=== PATIENT | female | born 1965 | race Caucasian/White ===

== ENCOUNTER 2021-02-14 12:23 | Outpatient (CLI) | payer SELFPAY ==
--- NOTE | 2021-02-14 12:15 | RT.EKG_ITS ---
APPROVED REPORT Exam: Resting ECG Reason for Exam: Chest discomfort Patient Location: O HR:136 bpm ECG Measurements Heart Rate 136 AXIS DE [id number] P [id number] QRSd 96 QRS -6 QT 323 T [id number] QTc 486 Conclusion Atrial fibrillation...V-rate 98-167, irreg A-activity Probable anterior infarct, old...Q >40mS, V2-V5 Nonspecific T abnormalities, lateral leads...T <-0.10mV, I aVL V5 V6
== END 2021-02-14 12:24 | disposition home or self-care (01) ==
LOC: DI.CM 12:24
PROVIDERS: Visit Provider Nurse Practitioner Family
DX: R07.89 Other chest pain (principal)
CPT/HCPCS: 93010

== ENCOUNTER 2021-02-14 13:09 | Observation (INO) | payer SELFPAY ==
[2021-02-14] VITALS (91 sets, daily range): BP systolic 39–110; BP diastolic 25–82; PULSE 69–156; RESP 10–32; TEMP 36.7–37.2; O2SAT 93–100
--- NOTE | 2021-02-14 13:15 | RT.EKG_ITS ---
APPROVED REPORT Exam: Resting ECG Reason for Exam: new onset afib, sob Patient Location: E HR:148 bpm ECG Measurements Heart Rate 148 AXIS HI [id number] P [id number] QRSd 96 QRS -32 QT 317 T [id number] QTc 498 Conclusion Atrial fibrillation...V-rate 125-172, irreg A-activity Left axis deviation...QRS axis (-30,-90) Probable anterior infarct, old...Q >40mS, V2-V5
[2021-02-14] MEDS: dilTIAZem 25 MG/5 ML VIAL 15 MG IVP (14:06)
[2021-02-14 14:07] LABS: Source Nasal/Nares
[2021-02-14 14:08] LABS: Abs Immature Grans 0.01 10^3/uL (0.0-0.06); Absolute Basophil Count 0.03 10^3/uL (0.0-0.2); Absolute Eosinophil Count 0.04 10^3/uL (0.0-0.7); Absolute Lymphocyte Count 1.22 10^3/uL (1.2-3.4); Absolute Monocyte Count 0.34 10^3/uL (0.1-0.8); Absolute Neutrophil Count 5.09 10^3/uL (1.2-6.7); Basophils % 0.4; Eosinophils % 0.6; HCT 38.9 % (36.0-46.0); HGB 12.9 g/dL (11.2-15.7); Immature Grans % 0.1; Lymphocytes % 18.1; MCH 30.9 pg (27.0-33.0); MCHC 33.2 % (32.0-36.0); MCV 93.3 fL (80-95); MPV 10.1 fL (8.0-11.0); Monocytes % 5.1; Neutrophils % 75.7; Nucleated RBC 0 %; Platelet Count 186 10^3/uL (130-400); RBC 4.17 10^6/uL (3.93-5.22); RDW 13.1 % (11.7-14.6); WBC 6.73 10^3/uL (4.4-10.8)
--- NOTE | 2021-02-14 14:31 | ED.GENADUL_ITS ---
Discharge Plan Disposition Patient Disposition: [facility] INPATIENT Condition: Serious Discharge Details Clinical Impression: Atrial fibrillation with rapid ventricular response, Congestive heart failure (CHF) Admit Date/Time: 02/14/21 16:53 Admit Provider: Duane Holt Attending Provider: Duane Holt Primary Care Provider: None,None ED Provider: Audi Emmanuel Discharge Data Discharge Date/Time-TO BE ENTERED AT DEPARTURE: 02/14/21 18:21 Medical Decision Making 55-year-old female here shortness of breath and dyspnea on exertion. Pt with new onset atrial fibrillation with RVR. EKG reviewed and interpreted by me: Please see report, afib Initial labs reviewed including electrolytes and TSH and initial troponin negative. Chest x-ray was interpreted by radiology: FINDINGS: Cardiomegaly. The mediastin um is not widened. Pulmonary venous hypertension pattern. Era B lines. Bordering on interstitial pulmonary edema. No obvious pleural effusions. Will check BNP with concern for CHF given chest x-ray findings, shortness of breath and dyspnea. Diltiazem bolus administered and infusion titrated to control HR. I called and spoke with hospitalist service, nurse practitioner, discussed ED presentation course, she will admit the patient. Labs reviewed and BNP elevated - exam and diagnostics consistent with CHF. HPI General Mode of arrival: ambulatory . Date/Time Provider Initiated Documentation: 02/14/21 13:57 . Limitations to Documentation: no limitations . Information obtained by: patient . HPI Narrative: 55-year-old female here shortness of breath and dyspnea on exertion. Symptoms have been ongoing for the past few weeks. Symptoms worse today. Worse with exertion. Patient went to [facility] and was noted to be in atrial fibrillation. She has no history of A. fib and was sent to the ED for further evaluation. Patient denies associated chest pain. She does note some mild lower extremity edema bilaterally. No calf pain. Related Data Home Medications Medication Instructions Recorded Confirmed Unknown [No Known Home Meds] 02/14/21 Allergies Allergy/AdvReac Type Severity Reaction Status Date / Time No Known Allergies Allergy Verified 02/14/21 11:50 General Stated Complaint: Palpitatns ANITA: 2 Review of Systems All systems reviewed & are unremarkable except as noted in HPI and below Constitutional Constitutional: Denies fever(s) Cardiovascular Cardiovascular: Reports as per HPI Respiratory Respiratory: Reports as per HPI [facility] Active Problem List (Updated 02/15/21 @ 20:35 by Audi Emmanuel MD) Biventricular heart failure (Acute) Congestive heart failure (CHF) (Acute) Atrial fibrillation with rapid ventricular response (Acute) Medical History (Updated 02/15/21 @ 20:35 by Audi Emmanuel MD) Ectopic , tubal (~1996) Social History Smoking/Tobacco Use Status: Former Tobacco Use Smoking risk assessment performed?: Yes Alcohol Intake: never Drug use: Never Substance use type: does not use Do you feel safe at home: Yes Do you feel safe in your relationship?: Yes Exam Const General: cooperative and no acute distress HENMT Mouth: moist mucous membranes Eyes Conjunctivae: normal conjunctivae Sclera: normal sclerae Neck Neck: trachea midline and supple Resp Auscultation: clear to auscultation bilaterally, no rales, no rhonchi and no wheezes Cardio Rate: tachycardic Rhythm: abnormal rhythm irregularly irregular GI Palpation: soft, not firm, no guarding, no masses, not rigid and nontender Skin General skin exam: no rashes or lesions noted Neuro General: patient alert, patient awake, patient oriented x3 and tone normal Extrem General: no calf tenderness and edema Laterality: bilateral (trace) Psych Appearance: grossly normal Mental Status: mental status grossly normal Speech and Movement: speech and movement normal Course Vital Signs Vital signs: Vital Signs Temperature 36.9 C 02/14/21 13:42 Pulse 86 02/14/21 13:42 Respiratory Rate 27 H 02/14/21 13:42 Blood Pressure 102/73 02/14/21 13:42 Pulse Oximetry 100 02/14/21 13:42 Temperature 36.9 C 02/14/21 13:42 Pulse 108 H 02/14/21 14:16 Pulse 112 H 02/14/21 14:16 Respiratory Rate 14 02/14/21 14:16 Respiratory Effort 02/14/21 13:48 Blood Pressure 100/62 02/14/21 14:16 Blood Pressure Mean 69 02/14/21 14:16 Pulse Oximetry 97 02/14/21 14:16 Oxygen Delivery Method Room Air 02/14/21 13:42 Oxygen Flow Rate 0 02/14/21 13:42 Pain Level 0 02/14/21 13:42 Lab/Test Results Lab/Test Results: Laboratory Tests Range/Units 02/14/21 02/14/21 13:55 14:00 WBC (4.4-10.8) 10^3/uL 6.73 RBC (3.93-5.22) 10^6/uL 4.17 Hgb (11.2-15.7) g/dL 12.9 Hct (36.0-46.0) % 38.9 MCV (80-95) fL 93.3 MCH (27.0-33.0) pg 30.9 MCHC (32.0-36.0) % 33.2 RDW (11.7-14.6) % 13.1 Plt Count (130-400) 10^3/uL 186 MPV (8.0-11.0) fL 10.1 Immature Gran % 0.1 Neutrophils % 75.7 Lymphocytes % 18.1 Monocytes % 5.1 Eosinophils % 0.6 Basophils % 0.4 Nucleated RBC % % 0 Absolute Neutrophils (1.2-6.7) 10^3/uL 5.09 Absolute Lymphocytes (1.2-3.4) 10^3/uL 1.22 Absolute Monocytes (0.1-0.8) 10^3/uL 0.34 Absolute Eosinophils (0.0-0.7) 10^3/uL 0.04 Absolute Basophils (0.0-0.2) 10^3/uL 0.03 COVID-19 Source Nasal/Nares Critical Care Time Critical Care Time Critical Care Time: Yes Total Critical Care Time: 50 Attestation: I spent greater than 40 minutes addressing this patient's immediate life threats. Please see MDM section of note. This time was spent engaged in work directly related to the patient's care, exclusive of separate procedures, and failure to initiate these interventions would have likely resulted in clinically significant or life threatening deterioration in the patient's condition.
[2021-02-14 14:34] LABS: ALT 81 U/L (14-59); AST 45 U/L (15-37); Albumin 3.8 g/dL (3.4-5.0); Alkaline Phosphatase 69 U/L (46-116); Anion Gap 11.6 mmol/L (3-11); BUN 21 mg/dL (7-18); Bilirubin, Total 0.8 mg/dL (0.2-1.0); CO2 24.4 mmol/L (21.0-32.0); CREATININE 0.8 mg/dL (0.55-1.02); Calcium 8.6 mg/dL (8.5-10.1); Chloride 108 mmol/L (98-107); Glucose 113 mg/dL (74-106); Magnesium 2.1 mg/dL (1.8-2.4); Sodium 144 mmol/L (136-145); TSH (W/Ref FT4) 2.25 uIU/mL (0.36-3.74); Total Protein 6.5 g/dL (6.4-8.2); Troponin I < 0.05 ng/mL (<0.06)
[2021-02-14] MEDS: dilTIAZem 125 MG in Normal Saline 100 ML IV (15:18)
--- NOTE | 2021-02-14 16:00 | DI.RAD_ITS ---
Exam(s) XR PORTABLE CHEST AP EXAM: XR PORTABLE CHEST AP CLINICAL HISTORY: new onset afib. TECHNIQUE: 2D digital imaging was performed. COMPARISON: No exams were available for comparison FINDINGS: Cardiomegaly. The mediastinum is not widened. Pulmonary venous hypertension pattern. Era B lines. Bordering on interstitial pulmonary edema. No obvious pleural effusions IMPRESSION: Cardiomegaly. Interstitial pulmonary edema. No obvious pleural effusions. DATA REPOSITORY: RADIATION DOSE DELIVERED: All CT scans at this facility use at least one of these dose optimization techniques: automated exposure control; mA and/or kV adjustment per patient size (includes targeted e xams where dose is matched to clinical indication); or iterative reconstruction.
--- NOTE | 2021-02-14 16:26 | DI.VRAD_ITS ---
PROCEDURE INFORMATION: Exam: XR Chest Exam date and time: 02/14/2021 3:24 PM Age: 55 years old Clinical indication: Other: New onset afib TECHNIQUE: Imaging protocol: XR of the chest. Views: 1 view. COMPARISON: No relevant prior studies available. FINDINGS: Lungs: Patchy nodular infiltrate involving both lung newby. Increased reticular markings at the lung bases consistent with atelectasis or developing infiltrate. Pulmonary vascular congestion with mild pulmonary edema. Pleural spaces: Unremarkable. No pleural effusion. No pneumothorax. Heart/Mediastinum: Cardiomegaly. Bones/joints: Unremarkable for patient's age. IMPRESSION: 1. Bilateral infiltrates as discussed above. 2. Cardiomegaly. Pulmonary edema. Dictated and Authenticated by: Sulema German MD. Ordering:KYLER Huntley MD
[2021-02-14 16:28] LABS: COVID-19 PCR Negative (Negative)
[2021-02-14 16:55] LABS: NT-proBNP 7216 pg/mL (<300)
--- NOTE | 2021-02-14 17:01 | HPE_ITS ---
Date of service: 02/14/21 Time of Service: 17:01 Assessment and Plan Assessment and plan (1) Atrial fibrillation with rapid ventricular response: Status: Acute Assessment and plan: This appears to be new onset atrial fibrillation. It sounds like she has had symptomatology for about 2 weeks now. There is an element of congestive heart failure indicating that this has been somewhat longstanding. She has no history of valvular dysfunction or prior coronary artery disease. It does not appear that she is having an acute myocardial infarction. We will trend her troponins. Set her up for echocardiogram in the a.m. Check her lipid panel. Diltiazem infusion to try to maintain a heart rate close to 100 while maintaining systolic blood pressure of greater than 100. Hold on anticoagulation for now. (2) Congestive heart failure (CHF): Status: Chronic Assessment and plan: Mild failure detected by chest x-ray and exam. She is satting 95% on room air and does not appear in respiratory distress. We will hold on diuretic therapy for now. History of Present Illness History of Present Illness Chief Complaint: Rapid atrial fibrillation Narrative: 55-year-old female self-referred to urgent care today because of 2 weeks of increasing shortness of breath. She has been noticing increasing shortness of breath climbing stairs and with other activities. She is also had some peripheral edema she attributed to long hours of standing. 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 She has noticed some wheezing when lying down. She has had some intermittent thoracic back pain. She has not had any upper respiratory tract symptoms. She has no prior cardiac history. She cannot recall any specific inciting event. She was sent to the ED from urgent care for further evaluation. In the emergency room she was found to be in rapid atrial fibrillation at a rate of 150 bpm. She was bolused with diltiazem and started on a diltiazem drip. She is being admitted to the ICU for further rate control and work-up. Review of Systems Narrative: As per HPI. She has had increasing dyspnea on exertion and some evidence of orthopnea. No chest pain. [facility] Active Problem List (Updated 02/14/21 @ 17:17 by Duane Holt MD) Congestive heart failure (CHF) (Chronic) Atrial fibrillation with rapid ventricular response (Acute) Medical History (Updated 02/14/21 @ 17:17 by Duane Holt MD) Ectopic , tubal (~1996) Social History Smoking/Tobacco Use Status: Former Tobacco Use Smoking risk assessment performed?: Yes Alcohol Intake: never Drug use: Never Substance use type: does not use Do you feel safe at home: Yes Do you feel safe in your relationship?: Yes Female Reproductive History Menstrual Menopause type: natural Meds Allergies and Home Medications Allergies Allergy/AdvReac Type Severity Reaction Status Date / Time No Known Allergies Allergy Verified 02/14/21 11:50 Home Medications Medication Instructions Recorded Confirmed Type Unknown [No Known Home Meds] 02/14/21 History Exam Narrative Exam Narrative: On exam she is pleasant and in no apparent distress. She had no labored breathing or cough. Her lung exam notable for some fine crackles at the right base. Some diminished breath sounds at the left base. Upper lung newby sounded clear. Heart rate was rapid and irregular. No significant murmur was appreciated. Her abdomen was overall soft and nontender in all 4 quadrants. No masses were appreciated. Her lower extremities notable for trace edema of the left ankle and no significant edema on the right. Otherwise appear to be well perfused. Neurologically there are no focal deficits. Results Labs Result diagrams: 02/14/21 13:55 02/14/21 13:55 Labs: Laboratory Results - last 24 hr 02/14/21 02/14/21 02/14/21 13:55 13:55 13:55 WBC 6.73 RBC 4.17 Hgb 12.9 Hct 38.9 MCV 93.3 MCH 30.9 MCHC 33.2 RDW 13.1 Plt Count 186 MPV 10.1 Immature Gran % 0.1 Neutrophils % 75.7 Lymphocytes % 18.1 Monocytes % 5.1 Eosinophils % 0.6 Basophils % 0.4 Nucleated RBC % 0 Absolute Neutrophils 5.09 Absolute Lymphocytes 1.22 Absolute Monocytes 0.34 Absolute Eosinophils 0.04 Absolute Basophils 0.03 Sodium 144 Potassium 4.0 Chloride 108 H Carbon Dioxide 24.4 Anion Gap 11.6 H BUN 21 H Creatinine 0.8 Estimated GFR/1.73 m2 >= 60.00 Glucose 113 H Calcium 8.6 Magnesium 2.1 Total Bilirubin 0.8 AST 45 H ALT 81 H Alkaline Phosphatase 69 Troponin I < 0.05 NT-Pro-B Natriuret Pep 7216 H Total Protein 6.5 Albumin 3.8 TSH 2.25 COVID-19 Source SARS-CoV-2 (PCR) 02/14/21 14:00 WBC RBC Hgb Hct MCV MCH MCHC RDW Plt Count MPV Immature Gran % Neutrophils % Lymphocytes % Monocytes % Eosinophils % Basophils % Nucleated RBC % Absolute Neutrophils Absolute Lymphocytes Absolute Monocytes Absolute Eosinophils Absolute Basophils Sodium Potassium Chloride Carbon Dioxide Anion Gap BUN Creatinine Estimated GFR/1.73 m2 Glucose Calcium Magnesium Total Bilirubin AST ALT Alkaline Phosphatase Troponin I NT-Pro-B Natriuret Pep Total Protein Albumin TSH COVID-19 Source Nasal/Nares SARS-CoV-2 (PCR) Negative Last Vital Signs Temp 36.9 C 02/14/21 13:42 Pulse 115 H 02/14/21 16:16 Resp 19 02/14/21 16:20 BP 99/82 L 02/14/21 16:16 Pulse Ox 98 02/14/21 16:20 PAWSS Pt Consumed Any Amount of Alcohol Within the Last 30 days OR had positive PARAS Upon Admission: No
[2021-02-14 17:24] LABS: Troponin I 0.06 ng/mL (<0.06)
[2021-02-14] MEDS: Enoxaparin 40 MG/0.4 ML SYR SC (20:02)
[2021-02-14 21:46] LABS: Troponin I 0.06 ng/mL (<0.06)
[2021-02-15] VITALS (157 sets, daily range): BP systolic 55–99; BP diastolic 40–73; PULSE 77–147; RESP 20–118; TEMP 35.5–36.4; O2SAT 89–97
--- NOTE | 2021-02-15 | DI.CT_ITS ---
Exam(s) CT CHEST PE CTA EXAM: CT CHEST PE CTA CLINICAL HISTORY: New Afib/CHF, shortness of breath, concern for PE. TECHNIQUE: Imaging Protocol: Axial CT angiography was performed with multi-slice acquisition and mu lti-planar and/or 3D reconstructions. CONTRAST MATERIAL: Intravenous: Omnipaque 350 Contrast volume:85 ml COMPARISON: CR,XR XR PORTABLE CHEST AP from 02/14/2021 CR,XR XR PORTABLE CHEST AP from 02/14/2021 FINDINGS: Pulmonary Arteries: No evidence of filling defect to suggest pulmonary emboli. Tracheobronchial tree: Patent where visualized. Mediastinum and Sheryl: No dominant adenopathy or fluid collection. Pulmonary parenchyma: Dependent changes at the lung bases. No consolidation or dominant measurable m ass. Interlobular septal thickening and bilateral ground-glass opacities consistent with CHF.. Pleura: No pneumothorax. Small bilateral pleural effusions, right greater than left. Heart: The heart is markedly dilated. No coronary artery calcifications are seen. Aorta: Thoracic aorta non-dilated. No significant atherosclerotic changes. Upper abdomen: Unremarkable. Bones: Unremarkable for age. IMPRESSION: No evidence of pulmonary embolism. Cardiomegaly and CHF. RADIATION DOSE DELIVERED: 407.83mGy.cm Total DLP DATA REPOSITORY: All CT scans at this facility are submitted to the National Radiology Data Registry (NRDR) Dose Index Registry (DIR) with the [employer] (ACR). RADIATION OPTIMIZATION: All CT scans at this facility use at least one of these dose optimization te chniques: automated exposure control; mA and/or kV adjustment per patient size (includes targeted exa ms where dose is matched to clinical indication); or iterative reconstruction.
[2021-02-15] MEDS: Lactated Ringers 500 ML IV ×2 (00:45→01:15)
[2021-02-15 03:17] LABS: D-Dimer 617 ng/mlFEU (<500)
[2021-02-15] MEDS: Normal Saline - Diluent 50 ML VIAL IV ×2 (05:16→05:17)
[2021-02-15] MEDS: Omnipaque 350 MG/ML 100 ML BTL IJ (05:16)
[2021-02-15] MEDS: Normal Saline Flush 10 ML SYR IVP ×2 (05:17→16:12)
[2021-02-15] MEDS: Acetaminophen 325 MG TAB PO ×2 (05:27→15:50)
--- NOTE | 2021-02-15 05:32 | NUR.NOTE ---
patient went to ct scan via wheelchair. With this activty, front desk monitor heart rate increased to as high as 146. BP to 98/68. Heart rate decreased to under 120 after a few minutes of rest
--- NOTE | 2021-02-15 05:52 | DI.VRAD_ITS ---
PROCEDURE INFORMATION: Exam: CTA Chest With Contrast Exam date and time: 02/15/2021 3:34 AM Age: 55 years old Clinical indication: Other: New afib/chf, shortness of breath, concern for pe TECHNIQUE: Imaging protocol: Computed tomographic angiography of the chest with contrast. 3D rendering (Not supervised by radiologist): MIP and/or 3D reconstructed images were created by the technologist. COMPARISON: XR PORTABLE CHEST AP 02/14/2021 3:49 PM FINDINGS: Pulmonary arteries: No evidence of acute pulmonary embolism. Aorta: Aorta normal caliber without aneurysm, dissection or disruption. Lungs: Septal thickening with diffuse bilateral ground-glass opacities likely pulmonary edema. Moderate bibasilar dependent and subsegmental atelectasis. No obvious pneumonia. Pleural spaces: Bilateral pleural effusions, right greater than left. No pneumothorax. Heart: Cardiac size enlarged. No pericardial effusion. No right heart strain. Lymph nodes: No mediastinal or hilar lymphadenopathy. Bones/joints: Mild degenerative changes noted throughout the spine. No fracture or subluxation. No obviously displaced rib fracture. No sternal fracture. Soft tissues: Unremarkable. IMPRESSION: 1. No evidence of acute pulmonary embolism. 2. Cardiomegaly with suspected CHF with effusions. Bibasilar atelectasis. Findings slightly worsened from prior chest x-ray. Dictated and Authenticated by: Pierce Amaya MD. Ordering:JAVIER Scott MD
[2021-02-15 07:14] LABS: Abs Immature Grans 0.01 10^3/uL (0.0-0.06); Absolute Basophil Count 0.03 10^3/uL (0.0-0.2); Absolute Eosinophil Count 0.04 10^3/uL (0.0-0.7); Absolute Lymphocyte Count 1.18 10^3/uL (1.2-3.4); Absolute Monocyte Count 0.23 10^3/uL (0.1-0.8); Absolute Neutrophil Count 3.36 10^3/uL (1.2-6.7); Basophils % 0.6; Eosinophils % 0.8; HGB 11.4 g/dL (11.2-15.7); Immature Grans % 0.2; Lymphocytes % 24.3; MCH 31.1 pg (27.0-33.0); MCHC 32.6 % (32.0-36.0); MCV 95.6 fL (80-95); MPV 9.9 fL (8.0-11.0); Monocytes % 4.7; Neutrophils % 69.4; Nucleated RBC 0 %; Platelet Count 161 10^3/uL (130-400); RBC 3.66 10^6/uL (3.93-5.22); RDW 12.9 % (11.7-14.6); RDW-SD 45.2 fL; WBC 4.85 10^3/uL (4.4-10.8)
--- NOTE | 2021-02-15 07:32 | DI.US_ITS ---
APPROVED REPORT EXAM: Comprehensive 2D, Doppler, and color-flow Echocardiogram Patient Location: In-Patient Room/Bed: [id number] Corporate Technical Recruiter: Susannah Chavez RDCS (AE) Indications: New onset Afib, CHF, SOB Other Information Study Quality: Adequate Conclusion Moderately dilated left ventricle. Normal left ventricular wall thickness. Estimated ejection fract ion is 15 to 20% with severe global hypokinesis Borderline dilated right ventricle, which is hypocontractile Both atria are dilated Trileaflet aortic valve without stenosis or regurgitation Mildly thickened mitral leaflets. Moderate to severe mitral regurgitation Normal tricuspid valve with moderate regurgitation. Estimated right ventricular systolic pressure is 33 mmHg Normal pulmonic valve with mild regurgitation Wall motion Left Ventricle Left ventricle is moderately dilated.6.85 cm Left ventricular systolic function is severely decreased . There is normal left ventricular wall thickness. Regional wall motion abnormalities cannot be exclu ded. There is no ventricular septal defect visualized. LVEF is 15-20%. Right Ventricle Right ventricle is borderline dilated. Right ventricle is hypokinetic. The RVSP is 33.1mmHg. Atria Left atrium is severely dilated. Right atrium is severely dilated. The interatrial septum is intact w ith no evidence for an atrial septal defect. Aortic Valve The aortic valve is normal in structure. Aortic valve is trileaflet. There is no aortic valvular sten osis. No aortic regurgitation is present. Mitral Valve Mitral valve leaflets are mildly thickened. No evidence of mitral valve stenosis. Moderate to severe mitral regurgitation. Tricuspid Valve The tricuspid valve is normal in structure. There is no tricuspid valve stenosis. Moderate tricuspid regurgitation. Pulmonic Valve The pulmonary valve is normal in structure. There is no pulmonic valvular stenosis. Mild pulmonic reg urgitation. Great Vessels The aortic root is normal in size. The ascending aorta is normal in size. Aortic arch is normal in ca liber. The IVC collapses <50% with inspiration. Pericardium There is no pericardial effusion. 2D Dimensions IVSD d PLAX 0.79 cm F: 0.6-1.0 LV Vol A2C d MOD 206.2 mL LVPW d PLAX 0.77 cm F: 0.6 - 1.0 LV Vol A4C d MOD 193.3 mL LVID d PLAX 6.85 cm F: 3.8 - 5.2 LA Area A4C s MOD 32.80 cm2 LVDs 6.50 cm F: 2.2 - 3.5 LA Area A2C s MOD 30.05 cm2 Ao Root d 3.37 cm F: 2.7 - 3.3 LV EF A4C MOD 12.6 % Ao Asc Diam d 3.17 cm F: 2.3 - 3.1 LV EF A2C MOD 12.1 % LV EF Teichholz 11.1 % LV EF Biplane MOD 10.4 % LVEF (Pierce's) 10.44 % F: 54 - 74 SV 20.96 mL LV Volume 200.71 mL F: 46 - 106 LV Volume Index 101.88 mL/m2 F: 29 - 61 LV Vol Biplane MOD 200.7 mL FS 5.00 % M-Mode TAPSE 1.54 cm (M/F) >1.7 LV Diastology MV E' medial 0.091 (>0.07 m/s) MV E Vmax 0.94 (0.4-1.3 m/s) LV E/e MED 10.30 (<14) MV E' lateral 0.124 (>0.1 m/s) LV E/e LAT 7.55 (<14) MV E/E' medial 10.31 MV E/E' lateral 7.60 Aortic Valve LVOT Area 2.94 cm2 AoV Area Vmax 2.32 cm2 LVOT Vmax 0.62 m/s SCOTT Mean Alex. 2.30 cm2 LVOT Mean Alex. 0.49 m/s LVOT Peak Grad 1.5 mmHg LVOT Mean Grad 1.0 mmHg LVOT VTI 0.092 m LVOT Diam s 1.90 cm AoV Vmax 0.78 m/s Velocity Ratio 0.79 AoV Mean Alex. 0.63 m/s AoV Peak Grad 2.4 mmHg LVOT SV 27.12 mL AoV Mean Grad 1.7 mmHg AoV VTI 0.126 m AoV Area VTI 2.16 cm2 Mitral Valve MV DT 138 (160-240 msec) MR Vmax 4.35 m/s MV PHT 40 msec MR VTI 1.119 m MV Area PHT 5.52 cm2 MR Peak Grad 75.7 mmHg MV VTI 0.206 m MR Mean Grad 51.5 mmHg MV VTI Annulus 0.215 m MR PISA Radius 0.73 cm MV Area VTI 1.37 (4.0-6.0 cm2) MR EROA 0.27 cm2 MR Aliasing Velocity 0.35 m/s MR PISA 3.38 cm2 Pulmonary Valve PV Vmax 0.59 (0.5-1.5 m/s) RVOT Peak Gr. 0.55 mmHg PV Peak Grad 1.4 mmHg RVOT Mean Gr. 0.30 mmHg PV Mean Grad 0.8 mmHg RVOT VTI 0.059 m PV VTI 0.095 m RVOT Vmax 0.37 m/s Tricuspid Valve TR Peak Grad 25.1 mmHg TR Vmax 2.51 m/s RA Pressure 8.00 mmHg RVSP (TR) 33.1 mmHg
[2021-02-15 07:39] LABS: Anion Gap 10.6 mmol/L (3-11); BUN 19 mg/dL (7-18); CO2 23.4 mmol/L (21.0-32.0); CREATININE 0.9 mg/dL (0.55-1.02); Calcium 8.2 mg/dL (8.5-10.1); Calculated LDL 98 mg/dL (<100); Chloride 108 mmol/L (98-107); Cholesterol 152 mg/dL (<200); Glucose 137 mg/dL (74-106); HDL Cholesterol 42 mg/dL (40-60); Sodium 142 mmol/L (136-145); Triglyceride 64 mg/dL (<150)
--- NOTE | 2021-02-15 07:56 | PUCC_ITS ---
General Date of Service Date of service: 02/15/21 Time of Service: 07:00 Reason for Admission to ICU: Atrial fibrillation with RVR Volume overload Assessment and Plan Assessment and plan (1) Biventricular heart failure: Status: Acute (2) Atrial fibrillation with rapid ventricular response: Status: Acute Assessment and plan: This is a 55 yo female who was otherwise healthy and who presents to be found in A.fib with RVR. Clinically to me she appeared to be in CHF, despite no known diagnosis of this. Later echocardiogram confirmed my suspicions finding biventricular heart failure with an EF of 15%. Her A.fib with RVR is likely a result of atrial stretch. Her PAP is not elevated on echo. She does not have a clear cause for her heart failure. She is a non-drinker and has no known autoimmune disease. Although ischemic cardiomyopathy seems less likely given her age and otherwise good health, she will most certainly need a cardiac cath to definitively rule this out. She has a thorough workup pending for other more rare causes of cardiomyopathy. I did not delve into whether or not she has had any recent life stressors that could prompt a Takatsubo's picture (although without the classic echo finding). She will benefit from rate control to below 110bpm. She should also be started on ASA, but would hold on the ARB while she is hypotensive. If her blood pressure is too soft with the amount of metoprolol needed for rate control I would recommend switching to amiodarone (acutely) as well as dobutamine, although currently she is not in cardiogenic shock, rather has lower BP given low stroke volume in addition to receiving significant BP lowering meds. She should be transfered to a CCU for a more thorough work up of her cardiomyopathy and possible consideration of an AICD given her biventricular failure and low EF. 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 - recommend holding ARB - avoid CCB's - avoid any agents that increase afterload - recommend trial dobutamine if development of cardiogenic shock, if she does not tolerate this then recommend levophed Atrial Fibrillation - recommend metoprolol for rate control. - again if she cannot tolerate this recommend amiodarone bolus and drip (acutely with plans to change) - no current indication for anti-coagulation - redusing her rate should improve her hemodynamics Renal: Close UOP monitoring Please chack electrolytes while diuresing - particularly given CHF I&O: Intake & Output 02/12/21 02/13/21 02/14/21 02/15/21 23:59 23:59 23:59 23:59 Intake Total 320.25 / 320.25 8.75 / 8.75 Output Total 350 / 475 250 / 250 Balance -29.75 / -154.75 -241.25 / -241.25 Weight 81.9 kg 86.7 kg Daily Fluid Goal:: -2L in 24 hours, try not to diurese too quickly GI Nutrition: OK for diet Date of Last Bowel Movement: 02/14/21 Infectious Disease: No acute concerns, ID workup pending for cardiomyopathy Hematologic: No acute concerns Neurologic: No acute concerns Endocrine: No acute concerns Lines: PIV Prophylaxis: recommend d/c heparin gtt and starting Lovenox for DVT ppx dosing. No indication for GI ppx Code Status: Resuscitation Status Full Code Subjective Critical and life-threatening events over the past 24 hours: This is a 55 yo female, who is otherwise medically healthy who presents with palpitations and shortness of breath. She was found to be in A.fib and started on a diltiazem drip. This helped with her heart rate but she became hypotensive due to the diltiazem. This was then stopped an dher heart rate increased again to 150. Her chest CT shows very significant volume overload with GGO and septal thickening. Additionally her heart is very enlarged. She tells me she has no history of DM, HTN or heart issues. There is no family history of heart disease. She denies drug use or excessive alcohol intake. She has SOB and weakness and endorses palpitations.She notes that her legs have been larger than normal recently. Exam Const General: no acute distress Nutritional Appearance: well nourished [facility] Head: normocephalic Ears: external ears normal and no periauricular adenopathy General nose exam: nasal mucous membranes and turbinates normal Face and sinus: sinuses nontender Mouth: oropharynx normal and moist mucous membranes Teeth and gingiva: dentition normal Eyes General: appearance normal, both eyes and all related structures Pupils: PERRL Neck Neck: normal visual inspection, no lymphadenopathy and JVD Chest Chest: normal inspection of the chest Resp Effort & Inspection: normal respiratory effort Auscultation: rales bilaterally 2/[address] up, no rhonchi and no wheezes Cardio Rate: regular rate Rhythm: regular rhythm Heart Sounds: S1 normal, S2 normal and no murmurs Pulses: radial pulses present bilaterally GI Inspection: normal to inspection Palpation: soft Skin General skin exam: no rashes or lesions noted Neuro General: patient alert, patient awake and patient oriented x3 Extrem General: no clubbing, no cyanosis and edema Laterality: bilateral (2/[address] olivera, 2-3+) Psych Mental Status: mental status grossly normal Affect: normal affect Attitude: cooperative Most Recent VS/Results Last Vital Signs Temp 36.1 C L 02/15/21 00:20 Pulse 133 H 02/15/21 06:01 Resp 11 L 02/14/21 23:40 BP 87/55 L 02/15/21 06:01 Pulse Ox 96 02/15/21 06:50 Laboratory Results - last 24 hr 02/14/21 02/14/21 02/14/21 13:55 13:55 13:55 WBC 6.73 RBC 4.17 Hgb 12.9 Hct 38.9 MCV 93.3 MCH 30.9 MCHC 33.2 RDW 13.1 Plt Count 186 MPV 10.1 Immature Gran % 0.1 Neutrophils % 75.7 Lymphocytes % 18.1 Monocytes % 5.1 Eosinophils % 0.6 Basophils % 0.4 Nucleated RBC % 0 Absolute Neutrophils 5.09 Absolute Lymphocytes 1.22 Absolute Monocytes 0.34 Absolute Eosinophils 0.04 Absolute Basophils 0.03 D-Dimer Sodium 144 Potassium 4.0 Chloride 108 H Carbon Dioxide 24.4 Anion Gap 11.6 H BUN 21 H Creatinine 0.8 Estimated GFR/1.73 m2 >= 60.00 Glucose 113 H Calcium 8.6 Magnesium 2.1 Total Bilirubin 0.8 AST 45 H ALT 81 H Alkaline Phosphatase 69 Troponin I < 0.05 NT-Pro-B Natriuret Pep 7216 H Total Protein 6.5 Albumin 3.8 Triglycerides Total Cholesterol LDL Cholesterol, Calc HDL Cholesterol TSH 2.25 COVID-19 Source SARS-CoV-2 (PCR) 02/14/21 02/14/21 02/14/21 14:00 16:55 21:15 WBC RBC Hgb Hct MCV MCH MCHC RDW Plt Count MPV Immature Gran % Neutrophils % Lymphocytes % Monocytes % Eosinophils % Basophils % Nucleated RBC % Absolute Neutrophils Absolute Lymphocytes Absolute Monocytes Absolute Eosinophils Absolute Basophils D-Dimer Sodium Potassium Chloride Carbon Dioxide Anion Gap BUN Creatinine Estimated GFR/1.73 m2 Glucose Calcium Magnesium Total Bilirubin AST ALT Alkaline Phosphatase Troponin I 0.06 0.06 NT-Pro-B Natriuret Pep Total Protein Albumin Triglycerides Total Cholesterol LDL Cholesterol, Calc HDL Cholesterol TSH COVID-19 Source Nasal/Nares SARS-CoV-2 (PCR) Negative 02/15/21 02/15/21 02/15/21 02:23 06:13 06:13 WBC 4.85 RBC 3.66 L Hgb 11.4 Hct 35.0 L MCV 95.6 H MCH 31.1 MCHC 32.6 RDW 12.9 Plt Count 161 MPV 9.9 Immature Gran % 0.2 Neutrophils % 69.4 Lymphocytes % 24.3 Monocytes % 4.7 Eosinophils % 0.8 Basophils % 0.6 Nucleated RBC % 0 Absolute Neutrophils 3.36 Absolute Lymphocytes 1.18 L Absolute Monocytes 0.23 Absolute Eosinophils 0.04 Absolute Basophils 0.03 D-Dimer 617 H Sodium 142 Potassium 4.0 Chloride 108 H Carbon Dioxide 23.4 Anion Gap 10.6 BUN 19 H Creatinine 0.9 Estimated GFR/1.73 m2 >= 60.00 Glucose 137 H Calcium 8.2 L Magnesium Total Bilirubin AST ALT Alkaline Phosphatase Troponin I NT-Pro-B Natriuret Pep Total Protein Albumin Triglycerides 64 Total Cholesterol 152 LDL Cholesterol, Calc 98 HDL Cholesterol 42 TSH COVID-19 Source SARS-CoV-2 (PCR) Review of Systems All systems reviewed & are unremarkable except as noted in HPI and below Time spent with patient Time spent in Critical Care: 45 Time spent in Critical care included: Coordination of care, Chart review, Documenting critically ill care, Time at immediate bedside and Discussing critically ill care with other medical staff
[2021-02-15] MEDS: Furosemide 40 MG/4 ML VIAL IVP ×2 (09:11→16:07)
--- NOTE | 2021-02-15 10:05 | PDOC.CMIN ---
- If Service Date Differs Date of service: 02/15/21 Time of Service: 10:05 Care Management Initial Assess REASON FOR HOSPITALIZATION:: Rapid Afib PAST MEDICAL HISTORY/PAST SURGICAL HISTORY:: Congestive heart failure (CHF) (Chronic). Atrial fibrillation with rapid ventricular response (Acute). Ectopic , tubal (~1996) PREVIOUS FUNCTIONAL STATUS/SOCIAL/FAMILY SUPPORTS:: Resides in [place], with her spouse and is independent at baseline in the community. 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 ADVANCE DIRECTIVES:: None on file. Has patient been provided with info about the portal/API?: No Did the patient sign up for the portal?: No CODE STATUS:: Full Code POTENTIAL DISCHARGE NEEDS:: Possible transfer per MD. PATIENT/FAMILY EDUCATION NEEDS:: Review discharge instructions, discuss Ask Me Three. ANTICIPATED BARRIERS TO DISCHARGE:: Bed availability if transfer is needed. TRANSPORTATION:: EMS with transfer, private vehicle with family if discharging home. PLAN:: Per MD, possible transfer anticipated. EMS transport to tertiary if needed. CM continues to follow.
[2021-02-15] MEDS: Metoprolol 50 MG TAB PO ×2 (10:18→16:07)
--- NOTE | 2021-02-15 10:28 | PGE_ITS ---
Date of Service Date of service: 02/15/21 Time of Service: 10:28 Assessment and Plan Assessment and plan (1) Congestive heart failure (CHF): Status: Acute Assessment and plan: Differential diagnosis include ischemic cardiomyopathy, viral myocarditis, sarcoidosis, amyloidosis, doubt alcohol related and she does not drink alcohol. Patient needs referral to a tertiary care center that manages complex cardiomyopathies. She is going to need a cardiac catheterization to rule out ischemic heart disease as well as obtaining cardiac biopsy looking for infiltrative process. I have reached out to [facility] at present time they are not accepting any patients but they will get a horse identifier to discuss her case with me and make recommendations. Patient had a good response to Lasix 40 mg IV push. At this time I put on scheduled dose of Lasix 40 mg IV BID, will work on getting better rate control of her atrial fibrillation by increasing her metoprolol to 50 mg 4 times daily. If were not able to control her rate with metoprolol consider addition of digoxin. I discussed with her going on anticoagulation I think is a good idea given her cardiomyopathy and her heart failure. Her [id number] score is 2 which gives her high risk for thromboembolic disease. Her yearly risk of stroke is 2.2%. I discussed this with her and I recommend that she go on a D.O.A.C. Qualifiers: Heart failure type: systolic Heart failure chronicity: acute Qualified Code(s): I50.21 - Acute systolic (congestive) heart failure (2) Atrial fibrillation with rapid ventricular response: Status: Acute Assessment and plan: Titration of her oral beta-mali and use as needed IV Lopressor for rapid sustained rates of 130 or greater. Begin anticoagulation with apixaban. If unable to adequately get her rate under control with beta- blockers alone then start digoxin Subjective Subjective Interval history since last seen: 55-year-old former smoker who uses chewing tobacco but does not drink any alcohol presented 2-week history of exertional dyspnea and bilateral leg edema. Chest x-ray was consistent with pulmonary edema and cardiomegaly. Chest CTA ruled out any pulmonary embolism or any aortic aneurysm. No pneumonic consolidation. Serial troponins were flat at 0.06 and repeat of 0.06. TSH is normal at 2.25 proBNP was 7200. Patient was on a diltiazem drip last night which has been discontinued and she was been started on metoprolol and was given a 50 mg dose this morning which she tolerated. She was also given Lasix 40 mg IV push this morning and has diuresed 1200 mL. BUN and creatinine are normal this morning at 19 and 0.9. Patient is feeling better. Blood pressures been soft throughout the night with systolic pressures in the 80s to 90s but for a short time she did dip down into the 70s. She was given a fluid bolus last night by the independent video producer. This morning she received the Lasix and diuresed. She is not requiring any supplemental oxygen at this time O2 sats 96%. She denies any chest pain or pressure. I explained to the patient that she has a cardiomyopathy her echocardiogram demonstrated 15 to 20% ejection fraction with severe global hypokinesis she has borderline dilated right ventricle which is hypocontractile she has biatrial enlargement there is no aortic stenosis or aortic insufficiency but she does have moderate to severe mitral regurgitation and moderate to severe tricuspid regurgitation with an RVSP of 33 mm. I explained to the patient that while we can try medical management with diuretics and beta-blockers bring her heart rate under control and to diurese her out of heart failure and will be adding an ARB to her regimen she is going to need to see a horse identifier and have a cardiac catheterization to rule out ischemic cause for heart disease as well as possibly obtain cardiac biopsy looking for any infiltrative process I put a call out to [facility] to the transfer center. At this time they are not receiving any transfers but they will get a horse identifier on the phone to discuss her case with me. Objective Last Vital Signs Temp 36.0 C L 02/15/21 10:04 Pulse 120 H 02/15/21 10:04 Resp 20 02/15/21 10:04 BP 95/73 L 02/15/21 10:04 Pulse Ox 96 02/15/21 10:04 Laboratory Results - last 24 hr 02/14/21 02/14/21 02/14/21 13:55 13:55 13:55 WBC 6.73 RBC 4.17 Hgb 12.9 Hct 38.9 MCV 93.3 MCH 30.9 MCHC 33.2 RDW 13.1 Plt Count 186 MPV 10.1 Immature Gran % 0.1 Neutrophils % 75.7 Lymphocytes % 18.1 Monocytes % 5.1 Eosinophils % 0.6 Basophils % 0.4 Nucleated RBC % 0 Absolute Neutrophils 5.09 Absolute Lymphocytes 1.22 Absolute Monocytes 0.34 Absolute Eosinophils 0.04 Absolute Basophils 0.03 D-Dimer Sodium 144 Potassium 4.0 Chloride 108 H Carbon Dioxide 24.4 Anion Gap 11.6 H BUN 21 H Creatinine 0.8 Estimated GFR/1.73 m2 >= 60.00 Glucose 113 H Calcium 8.6 Magnesium 2.1 Total Bilirubin 0.8 AST 45 H ALT 81 H Alkaline Phosphatase 69 Troponin I < 0.05 NT-Pro-B Natriuret Pep 7216 H Total Protein 6.5 Albumin 3.8 Triglycerides Total Cholesterol LDL Cholesterol, Calc HDL Cholesterol TSH 2.25 COVID-19 Source SARS-CoV-2 (PCR) 02/14/21 02/14/21 02/14/21 14:00 16:55 21:15 WBC RBC Hgb Hct MCV MCH MCHC RDW Plt Count MPV Immature Gran % Neutrophils % Lymphocytes % Monocytes % Eosinophils % Basophils % Nucleated RBC % Absolute Neutrophils Absolute Lymphocytes Absolute Monocytes Absolute Eosinophils Absolute Basophils D-Dimer Sodium Potassium Chloride Carbon Dioxide Anion Gap BUN Creatinine Estimated GFR/1.73 m2 Glucose Calcium Magnesium Total Bilirubin AST ALT Alkaline Phosphatase Troponin I 0.06 0.06 NT-Pro-B Natriuret Pep Total Protein Albumin Triglycerides Total Cholesterol LDL Cholesterol, Calc HDL Cholesterol TSH COVID-19 Source Nasal/Nares SARS-CoV-2 (PCR) Negative 02/15/21 02/15/21 02/15/21 02:23 06:13 06:13 WBC 4.85 RBC 3.66 L Hgb 11.4 Hct 35.0 L MCV 95.6 H MCH 31.1 MCHC 32.6 RDW 12.9 Plt Count 161 MPV 9.9 Immature Gran % 0.2 Neutrophils % 69.4 Lymphocytes % 24.3 Monocytes % 4.7 Eosinophils % 0.8 Basophils % 0.6 Nucleated RBC % 0 Absolute Neutrophils 3.36 Absolute Lymphocytes 1.18 L Absolute Monocytes 0.23 Absolute Eosinophils 0.04 Absolute Basophils 0.03 D-Dimer 617 H Sodium 142 Potassium 4.0 Chloride 108 H Carbon Dioxide 23.4 Anion Gap 10.6 BUN 19 H Creatinine 0.9 Estimated GFR/1.73 m2 >= 60.00 Glucose 137 H Calcium 8.2 L Magnesium Total Bilirubin AST ALT Alkaline Phosphatase Troponin I NT-Pro-B Natriuret Pep Total Protein Albumin Triglycerides 64 Total Cholesterol 152 LDL Cholesterol, Calc 98 HDL Cholesterol 42 TSH COVID-19 Source SARS-CoV-2 (PCR) PAWSS Pt Consumed Any Amount of Alcohol Within the Last 30 days OR had positive PARAS Upon Admission: No
--- NOTE | 2021-02-15 12:08 | NUR.NOTE ---
Lab draws APTT and other labs.Nursing Note:
--- NOTE | 2021-02-15 12:09 | PHA.REVIEW ---
Pharmacy Admission Review - Admission Clinical Review (Last Updated 02/14/21 @ 17:14 by Duane Holt MD) Congestive heart failure (CHF) (Acute) Atrial fibrillation with rapid ventricular response (Acute) No Known Allergies Allergy (Verified 02/14/21 11:50) Resuscitation Status Full Code Height 5 ft 9 in Weight 86.7 kg - Renal Dosing Renal Dosing: BUN 19 mg/dL (7-18) H 02/15/21 06:13 Creatinine 0.9 mg/dL (0.55-1.02) 02/15/21 06:13 Medications needing adjustments: Reviewed (Crcl ~72 mL/min current meds okay.) - Anticoagulation Anticoagulation: Hgb 11.4 g/dL (11.2-15.7) 02/15/21 06:13 Hct 35.0 % (36.0-46.0) L 02/15/21 06:13 Plt Count 161 10^3/uL (130-400) 02/15/21 06:13 Creatinine 0.9 mg/dL (0.55-1.02) 02/15/21 06:13 DVT Prophylaxis: N/A Therapeutic Anticoagulation: Reviewed Medications: Heparin - Opiate Usage Evaluate Pain Scale/Pains Meds: N/A - Relevant Labs Sodium 142 mmol/L (136-145) 02/15/21 06:13 Potassium 4.0 mmol/L (3.5-5.1) 02/15/21 06:13 Chloride 108 mmol/L (98-107) H 02/15/21 06:13 Magnesium 2.1 mg/dL (1.8-2.4) 02/14/21 13:55 Electrolytes, C-Reactive P, ESR: Reviewed - DM Control DM Control: Glucose 137 mg/dL (74-106) H 02/15/21 06:13 Insulin Dosing: N/A (Minimally elevated so far this admission. No DM noted in medical history, no A1c on file.) - Heart Failure/UT Heart Failure/UT: Troponin I 0.06 ng/mL (<0.06) 02/14/21 21:15 NT-Pro-B Natriuret Pep 7216 pg/mL (<300) H 02/14/21 13:55 EF%, KATY's, B-Blockers, Diuretics: Reviewed - BP Control BP Control: Blood Pressure [Right Arm] 89/55 Blood Pressure 95/73 Blood Pressure 89/55 Blood Pressure 87/55 Blood Pressure 98/68 If elevated: Reviewed (HR 120. BP has been low since admission. There are hold parameters on current BP meds that are ordered.) - Qtc Review If Elevated: Reviewed (QTc 498 on admission, current meds okay.) - IV to PO Switch IV Medications: Reviewed - Home Meds Home Med List reviewed: Reviewed (unknown/no known home meds) - Current meds Current Medication Order Review: Intervened (Discontinued DI meds, already given.) - Comments Comments/Follow Ups: Watch HR, BP, labs, and for med changes (avoid QT prolonging meds).
[2021-02-15 12:39] LABS: INR 1.1 (0.9-1.1); PTT Activated 23.9 sec (21.0-27.5); Prothrombin Time 11.2 sec (9.3-11.0)
--- NOTE | 2021-02-15 17:08 | NUR.NOTE ---
24 hour urine collection begins at 17:00 02-15-2021. Urine bottle is in room on ice. Second bottle is at nurses' station with collection instructions.Nursing Note:
--- NOTE | 2021-02-15 18:29 | NUR.NOTE ---
Patient placed in a slight trendelenberg position to assist keeping patient's BP elevated. Patient runs low and just received 50mg of Metoprolol and 40 mg of Furosemide.Nursing Note:
[2021-02-15 20:26] LABS: PTT Activated 36.8 sec (21.0-27.5)
[2021-02-15 20:27] LABS: Anion Gap 7.4 mmol/L (3-11); CO2 29.6 mmol/L (21.0-32.0); Chloride 106 mmol/L (98-107); Potassium 3.5 mmol/L (3.5-5.1); Sodium 143 mmol/L (136-145)
--- NOTE | 2021-02-15 23:40 | W.PM.DS.N ---
Date of service: 02/16/21 Time of Service: 00:39 DS: Diagnosis Discharge Diagnosis (1) Biventricular heart failure: Status: Acute (2) Atrial fibrillation with rapid ventricular response: Status: Acute (3) Congestive heart failure (CHF): Status: Acute (4) Elevated liver transaminase level: Status: Acute Discharge Plan Disposition Patient Disposition: [facility] Condition: Serious Discharge Details Reason For Visit: Rapid Afib Admit Date/Time: 02/14/21 16:53 Admit Provider: Duane Holt Attending Provider: Duane Holt Primary Care Provider: None,None Hospital Course Hospital Course: 55 yo F with no known significant PMH presented initially to urgent care with 2 days of increasing shortness of breath and peripheral edema. No chest pain or recent illness. She was found to be in atrial fibrillation with rate of 150bpm. Troponins 0.06 and 0.06. proBNP 7200. Negative CTA. She initially received diltiazem bolus and drip, but this was changed to metoprolol after echocardiogram revealed LVEF of 15-20% with severe global hypokenesis. She was started on heparin. Her [id number] was calcualated at 2. She responded to 40mg furosemide with good diuresis and 40mg IV BID was ordered. She was started on valsartan 20mg BID along with 50mg q 6 hr of metoprolol tatrate. Labs otherwise notable for AST of 45 and ALT of 81. No significant alcohol reported. KATY levels, ARVIND, serum electrophoresis, HIV, and 24hr urine for monoclonal proteins pending on discharge (urine packaged and sent with patient on ice) Transfer arranged to [facility] cardiology for catheterization and possible further diagnostic assessment including possible cardiac biopsy. Home Meds and New Rx's Prescriptions: No Action No Known Home Meds RF: 0 Discharge Instructions Instructions: Heart Failure (GEN) Activity:: ambulate on monitor Equipment/Supplies:: cardiac monitoring Diet:: Low Sodium Discharge Orders Discharge Orders: Discharge Order (Routine); Ordered 02/15/21 Ordered By: Timoteo Gutierrez DS: Summary Time Spent with Patient providing and/or coordinating discharge services: Less than 30 minutes Status at Discharge Functional status at discharge: independent ambulation Overall status at discharge: patient is not back to baseline Mental Status: mental status grossly normal Speech and Movement: speech and movement normal Mood: congruent mood Affect: normal affect Exam Const General: cooperative and no acute distress Nutritional Appearance: average body habitus Orientation: alert and oriented x3 Resp Effort & Inspection: able to speak in complete sentences Auscultation: crackles (1/3 up posterior lung newby bilaterally) Cardio Rate: regular rate Rhythm: abnormal rhythm irregularly irregular Heart Sounds: S1 normal, S2 normal, no gallops, no murmurs and no rubs Extrem General: normal to inspection, no cyanosis and edema (trace bilaterally) Psych Mental Status: mental status grossly normal Speech and Movement: speech and movement normal Mood: congruent mood Affect: normal affect DS: Data Vitals/I&O Vitals and I&O: Vital Signs Temperature 36.1 C L 02/15/21 19:30 Temperature Source Temporal Artery Scan 02/15/21 19:30 Pulse 91 H 02/15/21 20:24 Pulse 96 H 02/15/21 20:24 Respiratory Rate 20 02/15/21 19:30 Respiratory Effort 02/15/21 19:30 Respiratory Depth Normal 02/15/21 19:30 Respiratory Pattern Normal 02/15/21 19:30 Blood Pressure 83/53 L 02/15/21 20:24 Blood Pressure Mean 60 02/15/21 20:24 Blood Pressure Position Supine 02/15/21 19:30 Pulse Oximetry 95 02/15/21 20:24 Oxygen Delivery Method Room Air 02/15/21 19:30 Oxygen Flow Rate 0 02/15/21 19:30 Pain Level 0 02/15/21 19:30 Intake & Output 02/14/21 02/15/21 02/15/21 23:59 11:59 23:59 Intake Total 320.25 / 320.25 248.75 / 2304.583 2055.833 / 2304.583 Output Total 350 / 475 1500 / 3750 2250 / 3750 Balance -29.75 / -154.75 -1251.25 / -1445.417 -194.167 / -1445.417 Weight 81.9 kg 86.7 kg 84.9 kg Intake: IV 80.25 / 80.25 8.75 / 6871.314 3371.833 / 1104.583 Oral 240 / 240 240 / 1200 960 / 1200 Output: Urine 350 / 475 1500 / 3750 2250 / 3750 Other: Urine Color Pale Yellow Yellow Yellow Urine Appearance Clear Clear Clear Urine Odor None None None Comment Voiding independently in urinal. Stool Occult Blood Negative Stool Size Moderate Stool Characteristics Soft Voiding Methods Bedside Commode Bedside Commode Bedside Commode Data Completed and Pending Labs on day of discharge: Labs from last 24 hours 02/15/21 02/15/21 02/15/21 19:35 19:35 16:56 WBC RBC Hgb Hct MCV MCH MCHC RDW Plt Count MPV Immature Gran % Neutrophils % Lymphocytes % Monocytes % Eosinophils % Basophils % Nucleated RBC % Absolute Neutrophils Absolute Lymphocytes Absolute Monocytes Absolute Eosinophils Absolute Basophils PT INR APTT 36.8 H D D-Dimer Sodium 143 Potassium 3.5 Chloride 106 Carbon Dioxide 29.6 Anion Gap 7.4 BUN Creatinine Estimated GFR/1.73 m2 Glucose Calcium Total Protein (PEP) Albumin % (PEP) Kjike-7-Rvnhuybgm (%) Pdunj-4-Gctasovfd (%) Beta Globulins (%) Gamma Globulins (%) M-Karl % PEP Comment Triglycerides Total Cholesterol LDL Cholesterol, Calc HDL Cholesterol Angiotensin Convert Enz Ur Random Albumin Pending U Random Total Protein Pending U Collection Duration Pending Urine Total Volume Pending Ur Protein 24 Hr Calc Pending Urine Globulin Pending Urine Random PEP Note Pending Urine Immunofixation Pending ARVIND Titer ARVIND Titer 2 ARVIND Titer 3 ARVIND Interpretation A.phagocytophil DNA PCR B. divergens/MO-1 PCR Babesia duncani (PCR) Babesia microti DNA PCR Borrelia (PCR) Lyme Disease Antibody E.chaffeensis DNA (PCR) E.ewingii/canis DNA PCR E. muris-like DNA (PCR) HIV 1&2 Ag/Ab, 4th Gen 02/15/21 02/15/21 02/15/21 12:15 12:15 12:15 WBC RBC Hgb Hct MCV MCH MCHC RDW Plt Count MPV Immature Gran % Neutrophils % Lymphocytes % Monocytes % Eosinophils % Basophils % Nucleated RBC % Absolute Neutrophils Absolute Lymphocytes Absolute Monocytes Absolute Eosinophils Absolute Basophils PT INR APTT D-Dimer Sodium Potassium Chloride Carbon Dioxide Anion Gap BUN Creatinine Estimated GFR/1.73 m2 Glucose Calcium Total Protein (PEP) Pending Albumin % (PEP) Pending Xvmih-7-Zaoqltyby (%) Pending Vjlpr-5-Njlxeqlix (%) Pending Beta Globulins (%) Pending Gamma Globulins (%) Pending M-Karl % Pending PEP Comment Pending Triglycerides Total Cholesterol LDL Cholesterol, Calc HDL Cholesterol Angiotensin Convert Enz Ur Random Albumin U Random Total Protein U Collection Duration Urine Total Volume Ur Protein 24 Hr Calc Urine Globulin Urine Random PEP Note Urine Immunofixation ARVIND Titer Pending ARVIND Titer 2 Pending ARVIND Titer 3 Pending ARVIND Interpretation Pending A.phagocytophil DNA PCR Pending B. divergens/MO-1 PCR Pending Babesia duncani (PCR) Pending Babesia microti DNA PCR Pending Borrelia (PCR) Pending Lyme Disease Antibody Pending E.chaffeensis DNA (PCR) Pending E.ewingii/canis DNA PCR Pending E. muris-like DNA (PCR) Pending HIV 1&2 Ag/Ab, 4th Gen 02/15/21 02/15/21 02/15/21 12:15 12:15 12:15 WBC RBC Hgb Hct MCV MCH MCHC RDW Plt Count MPV Immature Gran % Neutrophils % Lymphocytes % Monocytes % Eosinophils % Basophils % Nucleated RBC % Absolute Neutrophils Absolute Lymphocytes Absolute Monocytes Absolute Eosinophils Absolute Basophils PT 11.2 H INR 1.1 APTT 23.9 D-Dimer Sodium Potassium Chloride Carbon Dioxide Anion Gap BUN Creatinine Estimated GFR/1.73 m2 Glucose Calcium Total Protein (PEP) Albumin % (PEP) Jqasq-8-Aotlaxarq (%) Hmeku-1-Bcmalpgla (%) Beta Globulins (%) Gamma Globulins (%) M-Karl % PEP Comment Triglycerides Total Cholesterol LDL Cholesterol, Calc HDL Cholesterol Angiotensin Convert Enz Pending Ur Random Albumin U Random Total Protein U Collection Duration Urine Total Volume Ur Protein 24 Hr Calc Urine Globulin Urine Random PEP Note Urine Immunofixation ARVIND Titer ARVIND Titer 2 ARVIND Titer 3 ARVIND Interpretation A.phagocytophil DNA PCR B. divergens/MO-1 PCR Babesia duncani (PCR) Babesia microti DNA PCR Borrelia (PCR) Lyme Disease Antibody E.chaffeensis DNA (PCR) E.ewingii/canis DNA PCR E. muris-like DNA (PCR) HIV 1&2 Ag/Ab, 4th Gen Pending 02/15/21 02/15/21 02/15/21 06:13 06:13 02:23 WBC 4.85 RBC 3.66 L Hgb 11.4 Hct 35.0 L MCV 95.6 H MCH 31.1 MCHC 32.6 RDW 12.9 Plt Count 161 MPV 9.9 Immature Gran % 0.2 Neutrophils % 69.4 Lymphocytes % 24.3 Monocytes % 4.7 Eosinophils % 0.8 Basophils % 0.6 Nucleated RBC % 0 Absolute Neutrophils 3.36 Absolute Lymphocytes 1.18 L Absolute Monocytes 0.23 Absolute Eosinophils 0.04 Absolute Basophils 0.03 PT INR APTT D-Dimer 617 H Sodium 142 Potassium 4.0 Chloride 108 H Carbon Dioxide 23.4 Anion Gap 10.6 BUN 19 H Creatinine 0.9 Estimated GFR/1.73 m2 >= 60.00 Glucose 137 H Calcium 8.2 L Total Protein (PEP) Albumin % (PEP) Rmmei-9-Lqgwfdadz (%) Djlbf-9-Sgccatbtb (%) Beta Globulins (%) Gamma Globulins (%) M-Karl % PEP Comment Triglycerides 64 Total Cholesterol 152 LDL Cholesterol, Calc 98 HDL Cholesterol 42 Angiotensin Convert Enz Ur Random Albumin U Random Total Protein U Collection Duration Urine Total Volume Ur Protein 24 Hr Calc Urine Globulin Urine Random PEP Note Urine Immunofixation ARVIND Titer ARVIND Titer 2 ARVIND Titer 3 ARVIND Interpretation A.phagocytophil DNA PCR B. divergens/MO-1 PCR Babesia duncani (PCR) Babesia microti DNA PCR Borrelia (PCR) Lyme Disease Antibody E.chaffeensis DNA (PCR) E.ewingii/canis DNA PCR E. muris-like DNA (PCR) HIV 1&2 Ag/Ab, 4th Gen [facility] Active Problem List Elevated liver transaminase level (Acute) Biventricular heart failure (Acute) Congestive heart failure (CHF) (Acute) Atrial fibrillation with rapid ventricular response (Acute) Medical History Ectopic , tubal (~1996) Social History Smoking/Tobacco Use Status: Former Tobacco Use Smoking risk assessment performed?: Yes Alcohol Intake: never Drug use: Never Substance use type: does not use Do you feel safe at home: Yes Do you feel safe in your relationship?: Yes Female Reproductive History Menstrual Menopause type: natural
[2021-02-16] VITALS (9 sets, daily range): BP systolic 82–92; BP diastolic 54–78; PULSE 84–128; RESP 20–22; TEMP 36.2–36.4; O2SAT 88–97
[2021-02-16 05:02] LABS: PTT Activated 51.5 sec (21.0-27.5)
--- NOTE | 2021-02-16 06:26 | NUR.NOTE ---
Nursing Note: 02/15/21-22:50H, recieved call from [facility] bed available in [id number] for Akshat.D to be transfered. All transfer procees arranged. No availability of ambulance as per DARINEL Baker. Informed [facility] transfer section Maury, as per him, bed will be kept for pt. [facility] ETA to ICU by 08:30H-02/16/21.
--- NOTE | 2021-02-16 09:08 | NUR.NOTE ---
RN gives telephonic report to MARTIN who will arrive at hospital to transport patient to [facility] shortly.Nursing Note:
--- NOTE | 2021-02-16 09:16 | NUR.NOTE ---
RN gives report to [facility] RN, Mathew Mcrae, RN telephonically.Nursing Note:
--- NOTE | 2021-02-16 09:42 | NUR.NOTE ---
[facility] arrives and loads patient onto stretcher without difficulty. Patient belongings are with patient. 24 hour urine sent with patient.Nursing Note:
[2021-02-16 10:33] LABS: HIV-1/2 Ag & Ab Screen Negative (Negative)
[2021-02-16 12:03] LABS: Angiotensin Converting Enzyme 29 U/L (16 - 85)
[2021-02-18 09:47] LABS: Lyme Ab w Rflx to Lyme Confirm Negative (Negative)
[2021-02-18 14:43] LABS: ANA Interpretation Positive (Negative); ANA Titer Pattern 1:80 Homogeneous
[2021-02-18 17:42] LABS: Anaplasma phagocytophilum Negative (Negative); B. miyamotoi PCR Negative (Negative); Babesia divergens/MO-1 Negative (Negative); Babesia duncani Negative (Negative); Babesia microti Negative (Negative); Ehrlichia chaffeensis Negative (Negative); Ehrlichia ewingii/canis Negative (Negative); Ehrlichia muris eauclairensis Negative (Negative)
== END 2021-02-16 09:45 | disposition short-term general hospital (02) ==
LOC: ER 13:34 → ICU 18:49
PROVIDERS: Family Medicine; Internal Medicine; Student in an Organized Health Care Education/Training Program; Admitting Provider Family Medicine; Emergency Provider Student in an Organized Health Care Education/Training Program; Visit Provider Family Medicine
DX: I50.21 Acute systolic (congestive) heart failure (principal); I48.91 Unspecified atrial fibrillation; Z20.822 Contact with and (suspected) exposure to COVID-19; I50.82 Biventricular heart failure; I42.0 Dilated cardiomyopathy; I95.9 Hypotension, unspecified
CPT/HCPCS: 36415; 71275; 80048; 80051; 80053; 80061; 82164; 84156; 84166; 86335; 87389; 87635; 87798; 93005; 96365; 96366; 96372; 96376; 99291; J1650; 71045; 83735; 83880; 84165; 84443; 84484; 85025; 85379; 85610; 85730; 86038; 86618; 93010; 93306; 99220; J1940; J3490

== ENCOUNTER 2021-02-14 17:45 | Outpatient (REF) | payer SELFPAY ==
[2021-02-16 15:29] LABS: COVID-19 RT-PCR UVMMC Result Negative (Negative)
== END 2021-02-14 17:46 | disposition home or self-care (01) ==
LOC: LBN 17:45
PROVIDERS: Visit Provider Nurse Practitioner Family
DX: Z20.822 Contact with and (suspected) exposure to COVID-19 (principal)
CPT/HCPCS: U0003

== ENCOUNTER 2021-03-26 12:54 | Outpatient (CLI) | payer SELFPAY ==
--- NOTE | 2021-03-26 12:45 | RT.EKG_ITS ---
APPROVED REPORT Exam: Resting ECG Reason for Exam: history of a fib Patient Location: O HR:72 bpm ECG Measurements Heart Rate 72 AXIS RI 185 P 69 QRSd 116 QRS 62 QT 575 T -12 QTc 630 Conclusion Sinus rhythm...normal P axis, V-rate 50- 99 Poor R wave progression Nonspecific intraventricular conduction delay...QRSd >115mS, not LBBB/RBBB Borderline low voltage, extremity leads...all extremity leads <0.6mV Nonspecific T abnrm, anterolateral leads...T <-0.10mV, I aVL V2-V6
== END 2021-03-26 12:55 | disposition home or self-care (01) ==
LOC: DI.CARD 12:54
PROVIDERS: Visit Provider Internal Medicine Cardiovascular Disease
DX: I48.91 Unspecified atrial fibrillation (principal)
CPT/HCPCS: 93010

== ENCOUNTER 2021-06-18 01:13 | Outpatient (CLI) | payer BC, SELFPAY ==
--- NOTE | 2021-06-18 10:21 | DI.US_ITS ---
APPROVED REPORT EXAM: Comprehensive 2D, Doppler, and color-flow Echocardiogram Patient Location: Out-Patient Supervisor Propellant Charge Loading: Susannah Chavez RDCS (AE) Indications: Cardiomyopathy, CHF, Atrial Fibrallation Other Information Study Quality: Adequate Conclusion Normal left ventricular wall thickness and chamber size. Estimated ejection fraction is 45 to 50%, g lobal hypokinesis Normal right ventricular size and systolic function The left atrium is mildly dilated. The right atrium is normal in size Normal trileaflet aortic valve without stenosis or regurgitation Normal mitral valve with trace to mild regurgitation Normal tricuspid valve with mild regurgitation. Estimated right ventricular systolic pressure is 28 mmHg Atrial septal aneurysm Borderline dilated ascending aorta measuring 3.46 cm Compared to the echocardiogram from January 2021, left ventricular systolic function has improved si gnificantly and degree of mitral regurgitation has decreased Wall motion Left Ventricle Left ventricle is mildly dilated. Left ventricular systolic function is mildly decreased. There is no rmal left ventricular wall thickness. There is global hypokinesis of the left ventricle. There is no ventricular septal defect visualized. LVEF is 45-50%. Right Ventricle The right ventricle is normal size. The right ventricular systolic function is normal. The RVSP is 28 .5 mmHg. Atria Left atrium is mildly dilated. The right atrium size is normal. Atrial septal aneurysm is present. Th e interatrial septum is intact with no evidence for an atrial septal defect. Aortic Valve The aortic valve is normal in structure. Aortic valve is trileaflet. There is no aortic valvular sten osis. No aortic regurgitation is present. Mitral Valve The mitral valve is normal in structure. No evidence of mitral valve stenosis. Trace to mild mitral r egurgitation. Tricuspid Valve The tricuspid valve is normal in structure. There is no tricuspid valve stenosis. Mild tricuspid regu rgitation. Pulmonic Valve The pulmonary valve is normal in structure. There is no pulmonic valvular stenosis. Trace pulmonic re gurgitation. Great Vessels The aortic root is normal in size. The ascending aorta is mildly dilated. Aortic arch is normal in ca liber. IVC is normal in size and collapses >50% with inspiration. Pericardium There is no pericardial effusion. 2D Dimensions IVSD d PLAX 0.84 cm F: 0.6-1.0 LV Vol A2C d MOD 172.7 mL LVPW d PLAX 0.84 cm F: 0.6 - 1.0 LV Vol A4C d MOD 132.5 mL LVID d PLAX 5.70 cm F: 3.8 - 5.2 LA vol/ BSA A2C s A-L 36.4 mL/m2 LVDs 4.40 cm F: 2.2 - 3.5 LA vol/ BSA A4C s A-L 29.8 mL/m2 Ao Root d 3.25 cm F: 2.7 - 3.3 LA Vol/ BSA Biplane s A-L 32.9 mL/m2 RA Area A4C 15.57 cm2 LA Area A4C s MOD 18.79 cm2 RA Vol/ BSA A4C s A-L 22.9 mL/m2 LA Area A2C s MOD 20.78 cm2 Ao Asc Diam d 3.46 cm F: 2.3 - 3.1 LV EF A4C MOD 45.5 % LV EF Teichholz 44.8 % LV EF A2C MOD 45.1 % LVEF (Pierce's) 42.91 % F: 54 - 74 LV EF Biplane MOD 42.9 % LV Volume 119.28 mL F: 46 - 106 SV 68.22 mL LV Volume Index 59.64 mL/m2 F: 29 - 61 SV Index 34.14 mL/m2 LV Vol Biplane MOD 159.0 mL FS 22.55 % M-Mode TAPSE 2.00 cm (M/F) >1.7 LV Diastology MV E' medial 0.054 (>0.07 m/s) E/A Ratio 0.7 LV E/e MED 8.70 (<14) MV E Vmax 0.47 (0.4-1.3 m/s) MV E' lateral 0.092 (>0.1 m/s) MV A Vmax 0.65 (0.4-1.3 m/s) LV E/e LAT 5.05 (<14) MV E/A Ratio 0.71 MV E/E' medial 8.70 MV E/E' lateral 5.08 Aortic Valve LVOT Area 3.68 cm2 AoV Area Vmax 3.09 cm2 LVOT Vmax 1.00 m/s AoV Area/ BSA (Vmax) 1.55 cm2/m2 LVOT Mean Alex. 0.65 m/s SCOTT Mean Laex. 2.94 cm2 LVOT Peak Grad 4.0 mmHg SCOTT Mean Alex. Index 1.47 cm2/m2 LVOT Mean Grad 2.0 mmHg LVOT VTI 0.179 m LVOT Diam s 2.15 cm AoV Vmax 1.19 m/s Velocity Ratio 0.84 AoV Mean Alex. 0.82 m/s AoV Peak Grad 5.7 mmHg LVOT SV 65.73 mL AoV Mean Grad 3.0 mmHg AoV VTI 0.229 m AoV Area VTI 2.87 cm2 AoV Area/ BSA (VTI) 1.44 cm/m2 Mitral Valve MV DT 218 (160-240 msec) MV PHT 63 msec MV Area PHT 3.48 cm2 MV VTI 0.225 m MV Area VTI 2.92 (4.0-6.0 cm2) Pulmonary Valve PV Vmax 0.98 (0.5-1.5 m/s) RVOT Peak Gr. 2.60 mmHg PV Peak Grad 3.8 mmHg RVOT Mean Gr. 1.35 mmHg PV Mean Grad 2.1 mmHg RVOT VTI 0.163 m PV VTI 0.174 m RVOT Vmax 0.81 m/s Tricuspid Valve TR Peak Grad 25.5 mmHg TR Vmax 2.53 m/s RA Pressure 3.00 mmHg RVSP (TR) 28.5 mmHg
== END 2021-06-18 01:33 ==
PROVIDERS: Visit Provider Internal Medicine Cardiovascular Disease
DX: I42.9 Cardiomyopathy, unspecified (principal); I48.91 Unspecified atrial fibrillation; I50.21 Acute systolic (congestive) heart failure
CPT/HCPCS: 93306

== ENCOUNTER 2021-06-27 09:31 | Outpatient (CLI) | payer BC, SELFPAY ==
--- NOTE | 2021-06-27 09:30 | RT.EKG_ITS ---
APPROVED REPORT Exam: Resting ECG Reason for Exam: afib Patient Location: O HR:74 bpm ECG Measurements Heart Rate 74 AXIS IN 174 P 68 QRSd 112 QRS 24 QT 440 T 117 QTc 489 Conclusion Sinus rhythm...normal P axis, V-rate 50- 99 Probable left atrial enlargement...P >50mS, <-0.10mV V1 Borderline intraventricular conduction delay...QRSd >112mS Low voltage, extremity leads...all extremity leads <0.5mV Borderline prolonged QT interval...QTc >485mS
== END 2021-06-27 09:32 | disposition home or self-care (01) ==
LOC: DI.CARD 09:31
PROVIDERS: Visit Provider Internal Medicine Cardiovascular Disease
DX: R94.31 Abnormal electrocardiogram [ECG] [EKG]; I42.9 Cardiomyopathy, unspecified; I48.91 Unspecified atrial fibrillation; I50.9 Heart failure, unspecified
CPT/HCPCS: 93010

== ENCOUNTER → 2022-01-27 02:06 | Outpatient (CLI) | payer BC, SELFPAY ==
--- NOTE | 2022-01-27 13:59 | DI.US_ITS ---
APPROVED REPORT EXAM: Comprehensive 2D, Doppler, and color-flow Echocardiogram Patient Location: Out-Patient Valve Assembler: Susannah Chavez RDCS (AE) Other Information Study Quality: Adequate Conclusion Normal left ventricular wall thickness and chamber size. Estimated ejection fraction is 45%. There is global hypokinesis Normal right ventricular size and systolic function Both atria are normal in size There is no structural or hemodynamically significant valvular disease Estimated right ventricular systolic pressure is 19 mmHg Patient was in atrial fibrillation throughout the study with heart rates ranging from 100 to 125 bpm Wall motion Left Ventricle The left ventricle is normal size. Left ventricular systolic function is mildly decreased. There is n ormal left ventricular wall thickness. There is global hypokinesis of the left ventricle. There is no ventricular septal defect visualized. LVEF is 45%. Right Ventricle The right ventricle is normal size. The right ventricular systolic function is normal. The RVSP is 18 .8 mmHg. Atria The left atrium size is normal. The right atrium size is normal. The interatrial septum is intact wit h no evidence for an atrial septal defect. Aortic Valve The aortic valve is normal in structure. Aortic valve is trileaflet. There is no aortic valvular sten osis. No aortic regurgitation is present. Mitral Valve The mitral valve is normal in structure. No evidence of mitral valve stenosis. Trace to mild mitral r egurgitation. Tricuspid Valve The tricuspid valve is normal in structure. There is no tricuspid valve stenosis. Mild tricuspid regu rgitation. Pulmonic Valve The pulmonary valve is normal in structure. There is no pulmonic valvular stenosis. There is no pulmo adenike valvular regurgitation. Great Vessels The aortic root is normal in size. The ascending aorta is normal in size. Aortic arch is normal in ca liber. IVC is normal in size and collapses >50% with inspiration. Pericardium There is no pericardial effusion. 2D Dimensions IVSD d PLAX 0.93 cm F: 0.6-1.0 LV Vol A2C d MOD 77.3 mL LVPW d PLAX 0.90 cm F: 0.6 - 1.0 LV Vol A4C d MOD 113.5 mL LVID d PLAX 5.41 cm F: 3.8 - 5.2 LA vol/ BSA A2C s A-L 37.4 mL/m2 LVDs 4.15 cm F: 2.2 - 3.5 LA vol/ BSA A4C s A-L 29.5 mL/m2 Ao Root d 3.34 cm F: 2.7 - 3.3 LA Vol/ BSA Biplane s A-L 35.1 mL/m2 RA Area A4C 17.14 cm2 LA Area A4C s MOD 20.09 cm2 RA Vol/ BSA A4C s A-L 27.0 mL/m2 LA Area A2C s MOD 21.44 cm2 Ao Asc Diam d 3.21 cm F: 2.3 - 3.1 LV EF A4C MOD 45.1 % LV EF Teichholz 45.5 % LV EF A2C MOD 45.6 % LVEF (Pierce's) 47.40 % F: 54 - 74 LV EF Biplane MOD 47.4 % LV Volume 74.29 mL F: 46 - 106 SV 46.75 mL LV Volume Index 37.71 mL/m2 F: 29 - 61 SV Index 23.67 mL/m2 LV Vol Biplane MOD 98.6 mL FS 22.90 % Aortic Valve LVOT Area 3.15 cm2 AoV Area Vmax 2.88 cm2 LVOT Vmax 0.74 m/s AoV Area/ BSA (Vmax) 1.46 cm2/m2 LVOT Mean Alex. 0.52 m/s SCOTT Mean Alex. 2.63 cm2 LVOT Peak Grad 2.2 mmHg SCOTT Mean Alex. Index 1.33 cm2/m2 LVOT Mean Grad 1.2 mmHg LVOT VTI 0.104 m LVOT Diam s 2.00 cm AoV Vmax 0.81 m/s Velocity Ratio 0.91 AoV Mean Alex. 0.62 m/s AoV Peak Grad 2.6 mmHg LVOT SV 32.94 mL AoV Mean Grad 1.7 mmHg AoV VTI 0.107 m AoV Area VTI 3.09 cm2 AoV Area/ BSA (VTI) 1.56 cm/m2 Pulmonary Valve PV Vmax 0.69 (0.5-1.5 m/s) RVOT Peak Gr. 1.53 mmHg PV Peak Grad 1.9 mmHg RVOT Mean Gr. 0.70 mmHg PV Mean Grad 1.1 mmHg RVOT VTI 0.100 m PV VTI 0.106 m RVOT Vmax 0.62 m/s Tricuspid Valve TR Peak Grad 15.7 mmHg TR Vmax 1.98 m/s RA Pressure 3.00 mmHg RVSP (TR) 18.8 mmHg
== END ==
PROVIDERS: Visit Provider Internal Medicine Cardiovascular Disease
DX: I42.9 Cardiomyopathy, unspecified (principal); I48.91 Unspecified atrial fibrillation; I50.9 Heart failure, unspecified
CPT/HCPCS: 93306

== ENCOUNTER 2022-03-17 09:38 | Outpatient (CLI) | payer BC, SELFPAY ==
--- NOTE | 2022-03-17 09:30 | RT.EKG_ITS ---
APPROVED REPORT Exam: Resting ECG Reason for Exam: A neftaly Patient Location: O HR:123 bpm ECG Measurements Heart Rate 123 AXIS NH [id number] P [id number] QRSd 100 QRS 16 QT 309 T 227 QTc 442 Conclusion Atrial fibrillation...V-rate 90-146, irreg A-activity Low voltage, extremity leads...all extremity leads <0.5mV
== END 2022-03-17 09:39 | disposition home or self-care (01) ==
LOC: DI.CARD 09:39
PROVIDERS: Visit Provider Internal Medicine Cardiovascular Disease
DX: I48.91 Unspecified atrial fibrillation (principal)
CPT/HCPCS: 93010

== ENCOUNTER 2022-08-14 09:59 | Outpatient (CLI) | payer BC, SELFPAY ==
--- NOTE | 2022-08-14 09:45 | RT.EKG_ITS ---
APPROVED REPORT Exam: Resting ECG Reason for Exam: afib Patient Location: O HR:95 bpm ECG Measurements Heart Rate 95 AXIS OR [id number] P [id number] QRSd 99 QRS 30 QT 361 T 239 QTc 454 Conclusion Atrial fibrillation...V-rate 81-115, irreg A-activity Low voltage, extremity and precordial leads...extremity<0.5mV, precordial<1.0mV
== END 2022-08-14 10:00 | disposition home or self-care (01) ==
LOC: DI.CARD 10:02
PROVIDERS: Visit Provider Internal Medicine Cardiovascular Disease
DX: I21.4 Non-ST elevation (NSTEMI) myocardial infarction (principal); I48.91 Unspecified atrial fibrillation
CPT/HCPCS: 93010

== ENCOUNTER → 2023-02-02 00:31 | Outpatient (CLI) | payer BC, SELFPAY ==
--- OUTSIDE RECORDS SUMMARY | 2023-02-02 00:40 | XMS_ITS | CCD ---
Author Name Unknown Address [address] [place] [address] [id number] Organization Unknown Address [address] [place] [address] [phone] Care Team Providers Care Extended Day Teacher Name Role Phone BHAVANA GARCIA Attending Physician [phone] BHAVANA GARCIA Rounding (Secondary) Physicia n [phone] Vital Signs Unknown or Not Available. Allergies Unknown or Not Available. Procedures Unknown or Not Available. History of Immunizations Unknown or Not Available. Problems Unknown or Not Available. Results Unknown or Not Available. Active Medications Unknown or Not Available. Medications Administered During Visit Unknown or Not Available. Encounters Unknown or Not Available. Social History Unknown or Not Available. Patient Decision Aids Unknown or Not Available. Discharge Instructions You were admitted to [facility] on 01/30/2023 00:00 You were discharged from [facility] on 01/30/2023 10:53 Should you have any questions prior to discharge, please contact a member of your healthcare team. If you have left the hospital and have any questions, please contact your primary care physician. Chief Complaint and Reason For Visit Unknown or Not Available. Function Status Unknown or Not Available. Plan of Care Diagnostic Test Pending Plan of Care Pending Diagnos tic Test FAHC CLTURE/SMEAR FUNGUS SKI N HAIR NAIL*, [LOINC: 580-1], 01/30/2023 Referral/Transition of Care Unknown or Not Available.
--- OUTSIDE RECORDS SUMMARY | 2023-02-02 00:40 | XMS_ITS | CCD ---
Author Name Unknown Address [address] [place] [address] [id number] Organization Unknown Address [address] [place] [address] [phone] Care Team Providers Care Manager Bank Name Role Phone FELIX MONTES Attending Physician [phone] FELIX MONTES Rounding (Secondary) Physician [phone] Vital Signs Unknown or Not Available. Allergies [...] Available. Discharge Instructions You were admitted to [facility] on 12/23/2022 11:24 You were discharged from [facility] Should you have any questions prior to discharge, please contact a member of your healthcare team. If you have left the hospital and have any questions, please contact your primary care physician. Chief Complaint and Reason For Visit Unknown or Not Available. Function Status Unknown or Not Available. Plan of Care Unknown or Not Available. Referral/Transition of Care Unknown or Not Available.
--- OUTSIDE RECORDS SUMMARY | 2023-02-02 00:40 | XMS_ITS | CCD ---
Author Name Unknown Address [address] [place] [address] [phone] Organization Unknown Address [address] [place] [address] [phone] Care Team Providers Care Terry Cloth Cutter Hand Name Role Phone KATHI MADRID Attending Physician [phone] KATHI MADRID Rounding (Secondary) Physicia n [phone] Vital Signs Unknown or Not Available. Allergies [...] Available. Discharge Instructions You were admitted to [facility] on 01/26/2023 00:00 You were discharged from [facility] on 01/26/2023 09:59 Should you have any questions prior to [...]
--- NOTE | 2023-02-02 08:00 | DI.US_ITS ---
APPROVED REPORT EXAM: Comprehensive 2D, Doppler, and color-flow Echocardiogram Patient Location: Out-Patient [employer] Maintenance Worker: Joey Cole RDCS (AE) Indications: Recheck LV function, cardiomyopathy Conclusion Left ventricle is borderline dilated. Ejection fraction is 35 to 40%. There is global hypokinesis Right ventricle is moderately dilated Both atria are moderately enlarged There are no structural valvular abnormalities There is mild mitral and tricuspid regurgitation Estimated right ventricular systolic pressure is 18 mmHg Patient was in atrial fibrillation throughout the study with a borderline rate Wall motion Left Ventricle The left ventricle is top normal size Left ventricular systolic function is mild to moderately decrea sed. There is normal left ventricular wall thickness. There is global hypokinesis of the left ventric le. There is no ventricular septal defect visualized. LVEF is 35-40%. Right Ventricle The right ventricle is moderately dilated The right ventricular systolic function is normal. The RVSP is 17.6 mmHg. Atria Left atrium is moderately dilated. Right atrium is moderately dilated. The interatrial septum is inta ct with no evidence for an atrial septal defect. Aortic Valve The aortic valve is normal in structure. Aortic valve is trileaflet. There is no aortic valvular sten osis. No aortic regurgitation is present. Mitral Valve The mitral valve is normal in structure. No evidence of mitral valve stenosis. Mild mitral regurgitat ion. Tricuspid Valve The tricuspid valve is normal in structure. There is no tricuspid valve stenosis. Mild tricuspid regu rgitation. Pulmonic Valve The pulmonary valve is normal in structure. There is no pulmonic valvular stenosis. There is no pulmo adenike valvular regurgitation. Great Vessels Aortic root is mildly dilated. The ascending aorta is normal in size. Aortic arch is normal in calib er. IVC is normal in size and collapses >50% with inspiration. Pericardium There is no pericardial effusion. 2D Dimensions IVSD d PLAX 0.66 cm F: 0.6-1.0 Ao Root d 3.53 cm F: 2.7 - 3.3 LVPW d PLAX 0.90 cm F: 0.6 - 1.0 Ao Asc Diam d 3.12 cm F: 2.3 - 3.1 LVID d PLAX 5.56 cm F: 3.8 - 5.2 LVDs 4.40 cm F: 2.2 - 3.5 LV EF Teichholz 42.0 % FS 20.84 % LV EDV (Teich) 151.0 mL LV ESV (Teich) 87.7 mL Stroke Vol Index (Teich) 32.00 Auto EF LV EDV A4C 88.3 mL LV EDV A2C 78.7 mL LV EDV BP 82.1 mL LV ESV A4C 53.4 mL LV ESV A2C 48.0 mL LV ESV BP 51.1 mL LVEF(%) A4C 39.5 % LVEF(%) A2C 39.0 % LVEF(%) BP 37.8 % LV SV A4C 34.9 ml LV SV A2C 30.7 ml LV SV BP 31.0 ml LV CO A4C 4.0 L/min LV CO A2C 2.8 L/min LV CO BP 3.4 L/min HR A4C 113.22 BPM HR A2C 92.08 BPM LV EDV Index (BP) LA Volume LA Length A4C 6.0 cm LA Length A2C LA Area A4C s 20.99 cm2 LA Area A2C s LA Vol A4C A-L 62.56 mL LA Vol A2C A-L LA Vol Biplane A-L LA Vol A4C MOD 53.8 mL LA Vol A2C MOD LA Vol BP MOD RA Volume RA Area A4C 15.3 cm2 RA ESV A4C (A-L) 35.7mL RA Vol/BSA A4C A-L RA Length A4C 5.6 cm RA ESV A4C (MOD) 35.7mL LV Diastology MV E' medial 0.061 (>0.07 m/s) MV E' lateral 0.098 (>0.1 m/s) Aortic Valve AoV Vmax 0.85 m/s LVOT Vmax 0.68 m/s AoV Peak Grad 2.9 mmHg LVOT Peak Grad 1.9 mmHg AoV Area (Vmax) 2.90 cm2 LVOT VTI 0.117 m AoV VTI 0.154 m LVOT Mean Grad 1.1 mmHg AoV Mean Alex. 0.66 m/s LVOT SV 42.39 mL AoV Mean Grad 1.9 mmHg LVOT Diam s 2.10 cm AoV Area (VTI) 2.75 cm2 Velocity Ratio 0.80 Pulmonary Valve PV Vmax 0.55 (0.5-1.5 m/s) RVOT Vmax 0.44 m/s PV Peak Grad 1.2 mmHg RVOT Peak Gr. 0.8 mmHg PV Mean Alex 0.39 m/s RVOT VTI 0.073 m PV Mean Grad 0.7 mmHg RVOT Mean Gr. 0.4 mmHg Tricuspid Valve RA Pressure 3.00 mmHg TR Vmax 1.91 m/s TR Peak Grad 14.5 mmHg RVSP (TR) 17.6 mmHg
== END ==
PROVIDERS: Visit Provider Internal Medicine Cardiovascular Disease
DX: I42.9 Cardiomyopathy, unspecified (principal)
CPT/HCPCS: 93306

== ENCOUNTER 2023-02-12 09:59 | Outpatient (CLI) | payer BC, SELFPAY ==
--- NOTE | 2023-02-12 09:45 | RT.EKG_ITS ---
APPROVED REPORT Exam: Resting ECG Reason for Exam: hx of afib Patient Location: O HR:100 bpm ECG Measurements Heart Rate 100 AXIS SC [id number] P [id number] QRSd 107 QRS 7 QT 354 T 244 QTc 457 Conclusion Atrial fibrillation...V-rate 69-132, irreg A-activity Low voltage, extremity and precordial leads...extremity<0.5mV, precordial<1.0mV Nonspecific T abnrm, anterolateral leads...T <-0.10mV, I aVL V2-V6
== END 2023-02-12 10:00 | disposition home or self-care (01) ==
LOC: DI.CARD 10:00
PROVIDERS: Visit Provider Internal Medicine Cardiovascular Disease
DX: I42.9 Cardiomyopathy, unspecified (principal); Z98.890 Other specified postprocedural states
CPT/HCPCS: 93010

== ENCOUNTER 2024-08-17 02:07 | Outpatient (CLI) | payer BC, SELFPAY ==
--- NOTE | 2024-08-17 12:00 | DI.US_ITS ---
APPROVED REPORT EXAM: Comprehensive 2D, Doppler, and color-flow Echocardiogram Patient Location: Out-Patient Microfilm Clerk: Susannah Chavez RDCS (AE) Indications: Re check LV function, Cardiomyopathy, Atrial fibrillation Other Information Study Quality: Adequate Conclusion Mildly enlarged left ventricle. Ejection fraction is 50% with mild global hypokinesis. Patient is i n atrial fibrillation with [id number] variation Normal right ventricular size and function Both atria are moderately enlarged There are no structural valvular abnormalities Mild mitral and tricuspid regurgitation Estimated right ventricular systolic pressure is 20 mmHg Wall motion Left Ventricle Left ventricle is mildly dilated. Left ventricular systolic function is mildly decreased. There is no rmal left ventricular wall thickness. There is global hypokinesis of the left ventricle. There is no ventricular septal defect visualized. LVEF is 50%. Right Ventricle The right ventricle is normal size. Right ventricular systolic function is grossly normal. Atria Left atrium is moderately dilated. Right atrium is moderately dilated. The interatrial septum is inta ct with no evidence for an atrial septal defect. Aortic Valve The aortic valve is normal in structure. There is no aortic valvular stenosis. No aortic regurgitatio n is present. Mitral Valve The mitral valve is normal in structure. No evidence of mitral valve stenosis. Mild mitral regurgita tion. Tricuspid Valve The tricuspid valve is normal in structure. There is no tricuspid valve stenosis. Mild tricuspid regu rgitation. The RVSP is 20.1 mmHg. Pulmonic Valve The pulmonary valve is normal in structure. There is no pulmonic valvular stenosis. Trace pulmonic re gurgitation. Great Vessels The aortic root is normal in size. The ascending aorta is normal in size. Aortic arch is normal in ca liber. IVC is normal in size and collapses >50% with inspiration. Pericardium There is no pericardial effusion. 2D Dimensions IVSD d PLAX 0.72 cm F: 0.6-1.0 Ao Root d 3.21 cm F: 2.7 - 3.3 LVPW d PLAX 0.70 cm F: 0.6 - 1.0 Ao Asc Diam d 3.24 cm F: 2.3 - 3.1 LVID d PLAX 5.66 cm F: 3.8 - 5.2 LVDs 4.38 cm F: 2.2 - 3.5 LV EF Teichholz 44.7 % FS 22.51 % LV EDV (Teich) 157.4 mL LV ESV (Teich) 87.0 mL M-Mode TAPSE 1.60 cm (M/F) >1.7 Auto EF LV EDV A4C 102.5 mL LV EDV A2C 87.6 mL LV EDV BP 99.8 mL LV ESV A4C 56.8 mL LV ESV A2C 47.1 mL LV ESV BP 52.6 mL LVEF(%) A4C 44.6 % LVEF(%) A2C 46.2 % LVEF(%) BP 47.3 % LV SV A4C 45.7 ml LV SV A2C 40.5 ml LV SV BP 47.2 ml LV CO A4C 2.4 L/min LV CO A2C 2.3 L/min LV CO BP 2.3 L/min HR A4C 51.80 BPM HR A2C 57.15 BPM LV EDV Index (BP) LA Volume LA Length A4C 6.6 cm LA Length A2C 6.1 cm LA Area A4C s 29.47 cm2 LA Area A2C s 24.87 cm2 LA Vol A4C A-L 112.19 mL LA Vol A2C A-L 85.58 mL LA Vol Biplane A-L 101.4 mL LA Vol/BSA A4C A-L LA Vol/BSA A2C A-L LA Vol/BSA BP A-L 50.2 mL/m2 LA Vol A4C MOD 99.3 mL LA Vol A2C MOD 80.2 mL LA Vol BP MOD 91.9 mL RA Volume RA Area A4C 25.2 cm2 RA ESV A4C (A-L) 83.4mL RA Vol/BSA A4C A-L RA Length A4C 6.5 cm RA ESV A4C (MOD) 79.1mL LV Diastology MV E Vmax 0.52 (0.4-1.3 m/s) Aortic Valve AoV Vmax 0.92 m/s LVOT Vmax 0.79 m/s AoV Peak Grad 3.4 mmHg LVOT Peak Grad 2.5 mmHg AoV Area (Vmax) 2.61 cm2 LVOT VTI 0.142 m AoV VTI 0.180 m LVOT Mean Grad 1.3 mmHg AoV Mean Alex. 0.69 m/s LVOT SV 43.30 mL AoV Mean Grad 2.1 mmHg LVOT Diam s 1.95 cm AoV Area (VTI) 2.40 cm2 AV Regurg Peak Gr. 3.39 mmHg Velocity Ratio 0.86 Mitral Valve MV DT 164 (160-240 msec) MV Vmax TIPS 0.75 m/s MV Mean Grad 0.8 (<2mmHg) MV VTI 0.164 m Pulmonary Valve PV Vmax 0.65 (0.5-1.5 m/s) RVOT Vmax 0.54 m/s PV Peak Grad 1.7 mmHg RVOT Peak Gr. 1.2 mmHg PV Mean Alex 0.57 m/s RVOT VTI 0.107 m PV Mean Grad 1.3 mmHg RVOT Mean Gr. 0.7 mmHg Tricuspid Valve RA Pressure 3.00 mmHg TR Vmax 2.07 m/s TV S' 0.10 m/s TR Peak Grad 17.0 mmHg RVSP (TR) 20.1 mmHg
== END 2024-08-17 02:27 ==
LOC: DI 02:07
PROVIDERS: Visit Provider Internal Medicine Cardiovascular Disease
DX: I42.9 Cardiomyopathy, unspecified (principal); I48.91 Unspecified atrial fibrillation; I36.0 Nonrheumatic tricuspid (valve) stenosis
CPT/HCPCS: 93306

== ENCOUNTER 2024-08-23 07:59 | Outpatient (CLI) | payer BC, SELFPAY ==
--- NOTE | 2024-08-23 07:45 | RT.EKG_ITS ---
APPROVED REPORT Exam: Resting ECG Reason for Exam: afib Patient Location: O HR:86 bpm ECG Measurements Heart Rate 86 AXIS [place] [id number] P [id number] QRSd 107 QRS -11 QT 380 T -71 QTc 455 Conclusion Atrial fibrillation... Low voltage Late transition Diffuse ST-T abnormalities
== END 2024-08-23 08:00 | disposition home or self-care (01) ==
LOC: DI.CARD 08:01
PROVIDERS: Visit Provider Internal Medicine Cardiovascular Disease
DX: I48.91 Unspecified atrial fibrillation (principal); I21.4 Non-ST elevation (NSTEMI) myocardial infarction
CPT/HCPCS: 93010